=== PATIENT | female | born 1950 | race African-American/Black ===

== ENCOUNTER → 2019-09-03 | Outpatient (CLI) | payer MEDICARE, OTHER ==
[~2019-09-03] MED LIST: CIPR500T94 PO; HYDR-3164 PO
--- NOTE | 2019-09-04 11:43 | RAD ---
Bilateral lower extremity arterial ultrasound History: Preoperative evaluation for right foot surgery. Peripheral artery disease evaluation. Findings: Multiple grayscale, color, and duplex spectral analysis sonographic images were acquired of the lower extremity arteries bilaterally. There are no previous similar exams. Velocities in cm/sec: RIGHT Common femoral artery 212 Profunda femoris artery 98 Proximal SFA 204 Mid SFA 135 Distal SFA 148 Popliteal artery 117 Anterior tibial artery 99 Dorsalis pedis artery 86 Posterior tibial artery 117 Peroneal artery not visualized Triphasic flow involving common femoral artery is noted. Biphasic flow involving the deep femoral artery noted. Triphasic flow is noted from the superficial femoral artery to the posterior tibial artery distribution. Biphasic flow is present involving the interphalangeal artery and dorsalis pedis artery. LEFT: Common femoral artery 168 Profunda femoris artery 100 Proximal SFA 166 Mid SFA 107 Distal SFA 133 Popliteal artery 162 Anterior tibial artery 111 Dorsalis pedis artery 86 Posterior tibial artery 116 Peroneal artery not visualized Triphasic flow is throughout the common femoral artery peroneal artery distribution. Biphasic flow involving the intervertebral artery noted. Triphasic dorsalis pedis arterial flow noted. Impression: Mildly elevated common femoral artery and superficial femoral artery velocities on the right in particular. No definite hemodynamic stenosis. Peroneal artery bilaterally is not visualized and is of indeterminate significance. No significant plaque however is identified involving the arterial vasculature of the lower extremities. Electronically signed by: Jose Armando Kirby MD (09/04/2019 11:40 AM) [facility]
== END | disposition home or self-care (01) ==
LOC: US 15:55
PROVIDERS: ATTEND Podiatrist
DX: Z01.818 Encounter for other preprocedural examination (principal); I73.9 Peripheral vascular disease, unspecified
CPT/HCPCS: 93925

== ENCOUNTER → 2019-10-18 | Outpatient (CLI) | payer MEDICARE, OTHER ==
[~2019-10-18] MED LIST changes: +ACET325T21 PO; +AMIO100T4 PO; +AMLO10TA4 PO; +APIX2.5T PO; +ATOR20TA PO; +CLIN300C8 PO; +DILT240C2 PO; +EMPA25TA PO; +FLUT16SP NS; +LISI-334 PO; +LOTE2.8D OU; +METF500T16 PO; +MULT-245 PO; +TRAM50TA PO
[2019-10-18 16:04] LABS: BASO # 0.1 x10^3/uL (0.0-0.2); BASO % 1 % (0-3); EOS % 0 % (0-3); HEMOGLOBIN 13.1 g/dL (12.0-15.5); LYMPH # 2.2 x10^3/uL (1.0-4.8); LYMPH % 30 % (24-48); MEAN CORPUSCULAR HEMOGLOBIN 33 pg (25-35); MEAN CORPUSCULAR HGB CONC 34 g/dL (31-37); MEAN CORPUSCULAR VOLUME 98 fL (79-100); MONO # 0.6 x10^3/uL (0.0-1.1); MONO % 7 % (0-9); NEUT # 4.6 x10^3/uL (1.8-7.7); NEUT % 61 % (31-73); PLATELET COUNT 253 x10^3/uL (140-400); RED BLOOD COUNT 3.97 x10^6/uL (3.50-5.40); RED CELL DISTRIBUTION WIDTH 13.3 % (11.5-14.5); WHITE BLOOD COUNT 7.5 x10^3/uL (4.0-11.0)
[2019-10-18 16:15] LABS: PROTHROMBIN TIME PATIENT 14.4 SEC (11.7-14.0)
[2019-10-18 16:26] LABS: ALBUMIN 3.9 g/dL (3.4-5.0); ALBUMIN/GLOBULIN RATIO 1.2 (1.0-1.7); CALCIUM 9.1 mg/dL (8.5-10.1); GFR 66.3; POTASSIUM 4.3 mmol/L (3.5-5.1); TOTAL BILIRUBIN 0.3 mg/dL (0.2-1.0); TOTAL PROTEIN 7.2 g/dL (6.4-8.2)
== END | disposition home or self-care (01) ==
LOC: LAB 15:39
PROVIDERS: ATTEND Podiatrist
DX: M20.41 Other hammer toe(s) (acquired), right foot (principal); I48.91 Unspecified atrial fibrillation
CPT/HCPCS: 36415; 80053; 85025; 85610; 85730

== ENCOUNTER 2019-10-24 10:08 | Day surgery (SDC) | payer MEDICARE, OTHER ==
[~2019-10-24] VITALS: Ht 162.6 cm; Wt 100.0 kg
[~2019-10-24 10:08] MED LIST changes: -CLIN300C8 PO; +CLINDAMYCIN 900MG PREMIX 50 ML IV PRN; -EMPA25TA PO; +HYDROmorphone 2 MG/ML VIAL IV PRN; +IV RINGERS,LACTATED 1000ML 1,000 ML IV SCH; +LIDOCAINE 2% PF 5 ML VIAL. ONE; +MORPHINE SULFATE 2 MG/ML VIAL. IV PRN; +ONDANSETRON PF 4 MG/2 ML VIAL. IV PRN; +PROCHLORPERAZINE 10 MG/2 ML VIAL. IV PRN; +PROPOFOL 20 ML IV ONE; -TRAM50TA PO; +fentaNYL PF VIAL 100 MCG/2 ML VIAL IV PRN
--- NOTE | 2019-10-24 10:41 | EKG ---
[facility] [address] [place] [address] Test Date: 2019-10-24 Test Time: 10:36:16 Pat Name: PATRICK HUNT Department: Room: Gender: F Aviation Engineer: PACHECO Corey : 1950 Requested By: MAULIK CHOW Order Number: [id number] Reading MD: Measurements Intervals [place] Rate: 50 P: -90 NV: 148 QRS: -26 QRSD: 84 T: 34 QT: 444 QTc: 407 Interpretive Statements SINUS RHYTHM LEFTWARD AXIS R-S TRANSITION ZONE IN V LEADS DISPLACED TO THE LEFT OTHERWISE NORMAL ECG RI6.01 No previous ECG available for comparison
[2019-10-24] MEDS ORDERED: EMPA25TA PO (11:07)
[2019-10-24] MEDS ORDERED: INSULIN LISPRO 100 UNIT/ML 3ML VIAL for OP,RR ONLY. SQ PRN (11:15)
[2019-10-24] MEDS ORDERED: BUPIVACAINE MPF 0.5% 30 ML VIAL. ONE (11:20)
[2019-10-24] MEDS ORDERED: methylPREDNISolone ACETATE 40 MG/ML VIAL. ONE (11:20)
[2019-10-24] MEDS ORDERED: LIDOCAINE 1% Multi-Dose 20 ML VIAL. ONE (11:20)
[2019-10-24] MEDS ORDERED: POVIDONE-IODINE 10% TOPICAL OINTMENT 28GM TUBE. TP ONE (11:20)
[2019-10-24] MEDS ORDERED: DEXAMETHASONE SOD PHOS 4 MG/ML VIAL ONE (11:20)
--- NOTE | 2019-10-24 11:33 | SSS ---
ADMIT DATE: 10/24/2019 PREOPERATIVE HISTORY AND PHYSICAL AND SHORT STAY SUMMARY CHIEF COMPLAINT: Right fourth toe hammertoe and bunion. 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 Basically, she has got a right fourth toe that needs surgery. Dr. Bess of the Podiatry Service has consulted us for preoperative evaluation. PAST MEDICAL HISTORY: Diabetes, hypertension, hyperlipidemia, AFib, chronic anticoagulation, right knee replacement, cataract surgery. ALLERGIES: CIPRO AND PENICILLIN. FAMILY HISTORY: Noncontributory. SOCIAL HISTORY: She is retired. She does not drink, smoke or take drugs. MEDICATIONS: Reviewed, please refer to the MRAD. REVIEW OF SYSTEMS: GENERAL: No history of weight change, weakness or fevers. SKIN: No bruising, hair changes or rashes. EYES: No blurred, double or loss of vision. NOSE AND THROAT: No history of nosebleeds, hoarseness or sore throat. HEART: No history of palpitations, chest pain or shortness of breath on exertion. LUNGS: Denies cough, hemoptysis, wheezing or shortness of breath. GASTROINTESTINAL: Denies changes in appetite, nausea, vomiting, diarrhea or constipation. GENITOURINARY: No history of frequency, urgency, hesitancy or nocturia. NEUROLOGIC: Denies history of numbness, tingling, tremor or weakness. PSYCHIATRIC: No history of panic, anxiety or depression. ENDOCRINE: No history of heat or cold intolerance, polyuria or polydipsia. EXTREMITIES: Denies muscle weakness, joint pain, pain on walking or stiffness. PHYSICAL EXAMINATION: VITALS: Within normal limits and are stable. GENERAL: No apparent distress. Alert and oriented. HEENT: Normal cephalic atraumatic, external auditory canals are patent. EYES: Extraocular muscles are intact, pupils are equally round and reactive to light and accommodation. MUSCULOSKELETAL: Well developed, well nourished, good range of motion. ENDOCRINE: No thyromegaly was palpated. LYMPHATICS: No cervical chain or axillary nodes were noted. HEMATOPOIETIC: No bruising. NECK: Supple, no JVD, no thyromegaly was noted. LUNGS: Clear to auscultation in all lung selby without rhonchi or wheezing. HEART: RRR, S1, S2 present. Peripheral pulses intact, no obvious murmurs were noted. ABDOMEN: Soft, nontender. Positive bowel sounds no organomegaly, normal bowel sounds. EXTREMITIES: She has got a right fourth toe hammertoe with a corn on top of it. NEUROLOGIC: Normal speech, normal tone. A & O x 3, moves all extremities, no obvious focal deficits. PSYCHIATRIC: Normal affect, normal mood. Stable. SKIN: No ulcerations or rashes, good skin turgor, no jaundice. VASCULAR: Good capillary refill, neurovascular bundle appears to be intact. ASSESSMENT AND PLAN: Right fourth toe hammertoe. The patient is cleared for surgery. She is at minimal risk for intraoperative or postoperative complications. If she needs to be admitted after surgery, please call me, we can arrange that. For now, I would recommend resuming home meds after surgery. Thank you very much for allowing us to participate in the care of this nice lady. ALEXANDRA LAKE DO DR: LYLA/alejandro JOB#: [id number] / [id number]
[2019-10-24] MEDS ORDERED: PROPOFOL 20 ML IV ONE (12:21)
--- NOTE | 2019-10-24 13:11 | PDOC4 ---
OPERATIVE NOTE: Post op Note: Surgeon: Maulik Angeles Diagnosis: Right foot 4th digit hammer toe with pre-ulcerative lesion. Procedure: Right foot 4th digit hammer toe correction with arthroplasty and flexor tendon release. Anesthesia: MAC anesthesia with local block using 9 ml of 1:1 mixture of 1% lidocaine plain and 0.5% marcaine plain. Complications: None Blood loss: minimal (about 5ml). Patient tolerated the procedure and anesthesia well. Patient was transported back to PACU with vital signs stable and good CFT to all the digits. MAULIK CHOW DPCat Oct 24, 2019 13:10
--- NOTE | 2019-10-24 13:23 | DISCH ---
DISCHARGE INSTRUCTIONS Condition on Discharge Condition on Discharge: Stable Activity After Discharge Activity Instructions for Disc: Other, see below (Minimal weight bearing, right foot in a surgical shoe.) Bathing Instructions: Shower-keep dressing dry Driving Instructions after Dis: Do not drive Weight Bearing Status after Di: Other, see below (Minimal weight bearing, right foot in a surgical shoe.) Diet after Discharge Diet after Discharge: Diabetic No Calorie Level Wound Incision Care Wound/Incision Care: Keep wound/cast CDI, Do not change dressing Contacting the after DC Call your doctor for: If any issue call Dr. Chow Follow-Up Follow up with: Dr. Chow on Monday10/29/2019 (Call clinic - [phone] to set up time) MAULIK CHOW DPM Oct 24, 2019 13:23
[2019-10-24] MEDS ORDERED: TRAM50TA PO ×2 (13:27)
[2019-10-24] MEDS ORDERED: CLIN300C8 PO (13:29)
[2019-10-24] MEDS ORDERED: traMADol 50 MG TABLET PO ONE (13:30)
[2019-10-24 13:50] VITALS: BP 122/48
--- NOTE | 2019-10-24 16:34 | RAD ---
3 views the right foot compared to 2 views the right foot dated August 132012 for postop. FINDINGS: There is a pes planus deformity. Hallux valgus deformity is also noted. There is no definite fracture or acute osseous abnormality identified. No radiopaque foreign bodies are seen. No juxta articular osteopenia or erosions are evident. IMPRESSION: 1. No acute osseous abnormality. 2. Chronic deformities as described. Electronically signed by: Yossi Cantu MD (10/24/2019 4:31 PM) [id number]
--- NOTE | 2019-10-28 13:17 | OP ---
DATE OF SURGERY: 10/24/2019 PREOPERATIVE DIAGNOSIS: Hammertoe, right foot fourth digit with pre-ulcerative lesion, right fourth digit proximal interphalangeal joint. POSTOPERATIVE DIAGNOSIS: Hammertoe, right foot fourth digit with pre-ulcerative lesion, right fourth digit proximal interphalangeal joint. PROCEDURE PERFORMED: Hammertoe correction with arthroplasty, right fourth digit with excision of the pre-ulcerative lesion. SURGEON: Maulik Chow DPM HEMOSTASIS: Right ankle tourniquet set at 250 mmHg. ANESTHESIA: IV MAC sedation with local anesthesia in a digital block fashion at right fourth digit. INDICATIONS: The patient is a 69-year-old female with diabetes mellitus with a chronically painful right fourth digit, which had a recent pre-ulcerative lesion with cellulitis. The cellulitis was resolved, but the lesion was still present with pain at the site. There was a corn due to the hammertoe deformity of the right fourth digit. The patient tried conservative treatment with wider shoes and accommodative padding with no improvement. The patient got vascular testing, cardiovascular clearance, and primary care clearance prior to the procedure. The procedure was discussed in detail as well as postoperative course, its risks, benefits, and complications including delayed healing, nonhealing, need for further surgery, infection, chronic regional pain syndrome, recurrence, numbness, tingling, burning, loss of sensation, blood clots to the leg, blood clots to the lung, overcorrection, undercorrection, stiff toe, floppy toe, flail toe, lack of purchase of the toe as well as other complications were all discussed in detail with the patient. All questions were answered. No guarantees were made. The patient signed the consent form freely and it was placed in the chart. DESCRIPTION OF PROCEDURE: The patient was dropped and transported to the operating room via cart and placed on the operating room table in a supine position. After verification of the patient, the procedure, and the site, a well-padded right ankle tourniquet was placed. IV sedation was performed by Anesthesia and a local anesthetic block was administered to the right fourth digit consisting of 1:1 mixture of 1% lidocaine plain and 0.5% Marcaine plain using 9 mL total. The right foot was then prepped and draped in the usual aseptic manner. Esmarch bandage was used to exsanguinate the right foot and the right ankle tourniquet was inflated to 250 mmHg. Attention was then drawn to the right fourth digit PIPJ where 2 elliptical incisions were made to excise the corn and a pre-ulcerative lesion that was visible. Next, incision was deepened with care taken to protect the neurovascular bundle. The incision was deepened to the joint capsule of the PIPJ. A horizontal incision was made along the extensor tendon as well as the joint capsule and the joint capsule was reflected off the proximal phalanx head of the right fourth digit. Next, the proximal phalanx head was resected about 3 mm in length and it was noted that the toe position was still not in a rectus position. Decision was made to do a flexor tenotomy using a separate incision to the medial plantar aspect of the right fourth digit. The toe then was noted to be in a rectus position. Next, the incision sites were irrigated copiously with sterile saline solution. The extensor tendon was sutured together with 3-0 Vicryl. The skin incision and the medial plantar aspect as well as the dorsal PIPJ aspect were sutured together using 4-0 nylon. The tourniquet was then deflated with good perfusion noted to the digit. Betadine ointment, Adaptic, 4 x 4 gauze, Kerlix, and Edward wrap bandage was applied to the surgical site. There was good perfusion noted to all digits of the right foot. The patient tolerated the anesthesia and procedure well and was transported to the PACU in a stable condition with vascular status intact to the right foot. The patient's postop instructions were placed in the chart. The patient to be minimal weightbearing as tolerated in a surgical shoe. RECOMMENDATIONS: The patient is to follow up in clinic in 5 days or sooner if any issues. The patient was given postoperative medication for pain as well as clindamycin 300 mg t.i.d. for 3 days. The patient to follow up in clinic. MAULIK CHOW DPM DR: SOLANGE/alejandro JOB#: [id number] / [id number]
--- NOTE | 2019-10-29 18:06 | PATHOLOGY ---
[facility] Accession Number: [id number] . 01 Material submitted: . toe - PROXIMAL PHALANX, FOURTH DIGIT, RIGHT FOOT. Modifiers: proximal, fourth . 01 Clinical history: . Hammertoe right foot, right fourth toe . 02 Diagnosis: Segment of bone with attached cartilage and fibrous tissue, proximal phalanx, fourth digit, right foot: - Consistent with hammertoe deformity. (JPM:security coordinator; 10/29/2019) MBR 10/29/2019 1615 Local . 02 Electronically signed: . Cordell Ramsey MD, Pathologist NPI- [id number] . 01 Gross description: . The specimen is received in formalin, labeled "Radha Jordan, proximal phalanx fourth digit right foot". Received is a segment of light gomez bone measuring 0.8 x 0.5 x 0.5 cm in greatest dimensions. One margin is blunt in appearance, consistent with transection, and the opposite margin is smooth, convex in appearance, consistent with disarticulation. The transected margin is inked black. The specimen is submitted entirely in cassette A1, following decalcification. (CAA; 10/28/2019) QAC/QAC 10/28/2019 1222 Local . 02 Pathologist provided ICD-10: M20.41 . 02 CPT . 001268, 544118 Specimen Comment: A courtesy copy of this report has been sent to [phone], [phone] Specimen Comment: [id number] Specimen Comment: Report sent to / DR JOYA Performed at: [address], [place], [place] [id number] MD Gil Newell MD Phone: [phone] Performed at: 02 [facility] [address] [place], [place] [id number] MD Cordell Ramsey MD Phone: [phone]
== END 2019-10-24 14:15 | disposition home or self-care (01) ==
LOC: SURG 10:08
PROVIDERS: ATTEND Podiatrist
DX: M20.41 Other hammer toe(s) (acquired), right foot (principal); I10 Essential (primary) hypertension; E78.00 Pure hypercholesterolemia, unspecified; I48.91 Unspecified atrial fibrillation; G47.30 Sleep apnea, unspecified; F17.210 Nicotine dependence, cigarettes, uncomplicated; K21.9 Gastro-esophageal reflux disease without esophagitis; E11.39 Type 2 diabetes mellitus with other diabetic ophthalmic complication; H42 Glaucoma in diseases classified elsewhere; Z79.899 Other long term (current) drug therapy; E66.9 Obesity, unspecified; Z68.37 Body mass index [BMI] 37.0-37.9, adult; Z87.39 Personal history of other diseases of the musculoskeletal system and connective tissue; Z96.651 Presence of right artificial knee joint; Z98.42 Cataract extraction status, left eye; Z98.41 Cataract extraction status, right eye; Z72.89 Other problems related to lifestyle; Z79.84 Long term (current) use of oral hypoglycemic drugs; Z96.1 Presence of intraocular lens
CPT/HCPCS: 28285; 73630; 82962; 93005; A7015; J1815; J2001; J2704; J3490; J1030; J1100